=== PATIENT | male | born 2005 | race Caucasian/White ===

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

== ENCOUNTER 2023-03-15 12:09 | Emergency (ER) | payer OTHER, SELFPAY ==
--- NOTE | 2023-03-15 12:32 | EXP.UTC ---
Discharge Plan Disposition Patient Disposition: Home, Self-Care Condition: Good Prescriptions Prescriptions: New azithromycin [Zithromax] 250 mg tablet 250 mg PO UD DOSE PK Qty: 6 0RF Rx Instructions: Take two (2) tablets today, then one (1) tablet days #2 thru #5 benzonatate [benzonatate] 100 mg capsule 100 mg PO TIDP PRN (Reason: Cough) Qty: 30 0RF methylprednisolone 4 mg Tablets,Dose Pack 4 mg PO DIRECTED Qty: 21 0RF No Action methylprednisolone 4 mg Tablets,Dose Pack 4 mg PO DIRECTED Qty: 21 0RF triamcinolone acetonide 0.1 % cream 1 applic topical BID PRN (Reason: itching) Qty: 30 0RF Referrals Follow up/Referrals: Provider,Referral, MD [Primary Care Provider] - See instructions Activity Restrictions/Add. Instructions Additional Instructions/Restrictions: Drink plenty of fluids. Take tylenol or ibuprofen for pain or fever. Take the medications as directed. Follow up with your regular doctor. GO TO THE ER FOR ANY WORSENING SYMPTOMS Clinical Impressions Clinical Impression: Sinusitis Instructions Patient Instructions: Sinusitis, DI for Sinusitis Discharge ED Provider: Omero Herrera [facility] General Stated complaint: Congestion drainage sore throat Time Seen by Provider: 03/15/23 12:32 History of Present Illness Provider Complaint: He states that for the past 2 weeks he has had sinus congestion and bilateral ear pain. Related Data Previous Rx's Medication Instructions Recorded methylprednisolone 4 mg tablets in 4 mg PO DIRECTED #21 tabs 07/02/22 a dose pack triamcinolone acetonide 0.1 % 1 applic topical BID PRN itching 07/02/22 topical cream #30 grams azithromycin 250 mg tablet 250 mg PO UD DOSE PK #6 tabs 03/15/23 (Zithromax) benzonatate 100 mg capsule 100 mg PO TIDP PRN Cough #30 caps 03/15/23 methylprednisolone 4 mg tablets in 4 mg PO DIRECTED #21 tabs 03/15/23 a dose pack Allergies Allergy/AdvReac Type Severity Reaction Status Date / Time amoxicillin Allergy Verified 03/15/23 12:39 Penicillins Allergy Verified 03/15/23 12:39 [facility] Disclaimer: The information contained in this section may have been updated after the patient was seen, as this information can be updated by other users. Medical History Asthma Social History Smoking Status: Unknown if ever smoked alcohol intake: never current occupational status: unemployed Travel in the last 8 weeks: None ROS Obtained: Yes All systems reviewed & no additional complaints except as documented Constitutional Constitutional: Reports poor appetite Eyes Eyes: Reports system reviewed and no additional complaints, except as documented ENT Ears, Nose, Mouth, and Throat: Reports as per HPI Cardiovascular Cardiovascular: Reports system reviewed and no additional complaints, except as documented and Denies chest pain Respiratory Respiratory: Denies shortness of breath, Reports chest congestion, Reports cough, Denies stridor and Denies wheezing Gastrointestinal Gastrointestingal: Reports system reviewed and no additional complaints, except as documented; Denies abdominal pain, diarrhea or vomiting Musculoskeletal Musculoskeletal: Reports system reviewed and no additional complaints, except as documented and Denies arthralgias Integumentary/Breasts Skin/Breast: Reports system reviewed and no additional complaints, except as documented and Denies rash Neurologic Neurologic: Denies paresthesias Allergic/Immunologic Allergic/Immunologic: Denies wheezing Physical Exam General General appearance: alert and in no apparent distress Eye Eye exam: Present normal appearance, PERRL and EOMI ENT ENT exam: Present mucous membranes moist and normal external ear exam Expanded ENT Exam External ear exam: Present normal external inspection TM/Canal exam: Bilateral TM: eryt
[2023-03-15 12:35] VITALS: BP 108/67; PULSE 71; RESP 16; TEMP 36.6; O2SAT 99; BMI 32.1
[2023-03-15 13:00] VITALS: BP 108/67; PULSE 71; RESP 16; TEMP 36.6
== END 2023-03-15 13:01 | disposition home or self-care (01) ==
PROVIDERS: Emergency Provider Nurse Practitioner Family
DX: J01.90 Acute sinusitis, unspecified (principal); H92.03 Otalgia, bilateral; J45.909 Unspecified asthma, uncomplicated
CPT/HCPCS: 99212; 99214; G0463

== ENCOUNTER 2023-12-08 08:42 | Outpatient (CLI) | payer BC, SELFPAY ==
--- NOTE | 2023-12-08 08:51 | XR_ITS ---
FINAL REPORT CLINICAL HISTORY: COSTOCHONDRAL PAIN COMPARISON: None FINDINGS: Two views of the chest were obtained. The heart size and pulmonary vascularity are within normal limits. The mediastinum is normal. No acute pulmonary abnormality is identified. There is no pneumothorax. The bony thorax is intact. IMPRESSION: No active cardiopulmonary disease. Reviewed, Interpreted and Dictated by Niko Puentes III, MD Transcribed by Anh Trinidad Authenticated and [facility]
== END 2023-12-08 23:59 ==
PROVIDERS: PCP Family Medicine; Visit Provider Family Medicine
DX: R07.89 Other chest pain (principal)
CPT/HCPCS: 71046

== ENCOUNTER 2024-07-05 07:41 | Outpatient (CLI) | payer BC, SELFPAY ==
--- NOTE | 2024-07-05 07:47 | US_ITS ---
FINAL REPORT CLINICAL HISTORY: .RUQ PAIN COMPARISON: None FINDINGS: Sonographic images of the right upper quadrant were obtained. The pancreas is partially obscured. There is increased echogenicity in the liver, consistent with fatty infiltration. The gallbladder appears normal without evidence of gallstones.There is no evidence of biliary ductal dilatation.The common duct measures 3 mm. Limited images of the right kidney are unremarkable. IMPRESSION: Fatty infiltration of the liver. Otherwise unremarkable right upper quadrant ultrasound. Reviewed, Interpreted and Dictated by Niko Puentes III, MD Transcribed by Guadalupe Eubanks Authenticated and [facility]
== END 2024-07-05 23:59 | disposition home or self-care (01) ==
PROVIDERS: PCP Nurse Practitioner; Visit Provider Nurse Practitioner
DX: R10.11 Right upper quadrant pain (principal)
CPT/HCPCS: 76705

== ENCOUNTER 2024-07-09 14:07 | Emergency (ER) | payer BC, SELFPAY ==
[2024-07-09 14:19] VITALS: BP 139/79; PULSE 79; RESP 16; O2SAT 100; BMI 38.2
--- NOTE | 2024-07-09 14:32 | XR_ITS ---
FINAL REPORT CLINICAL HISTORY: Ankle/foot injury COMPARISON: None FINDINGS: LEFT ANKLE: 3 views of the left ankle were obtained. There is no acute fracture or dislocation. The joint spaces are intact. There is no soft tissue abnormality. IMPRESSION: No acute process. Reviewed, Interpreted and Dictated by Alo Montanez MD Transcribed by Anh Trinidad Authenticated and [facility]
--- NOTE | 2024-07-09 14:32 | ED_ITS ---
<Statement entered by Nettie Valle DO - 07/09/24 18:30> I was consulted by the MITCH, and we discussed the complexity of the problems being addressed. I approved the treatment and management plan for this patient's care in the emergency department, thus performing a substantive portion of the medical decision making. Nettie Valle DO Discharge Plan Disposition Patient Disposition: Home, Self-Care Condition: Good Chief Complaint: Extremity Injury, Lower Prescriptions Prescriptions: No Action methylprednisolone 4 mg Tablets,Dose Pack 4 mg PO DIRECTED Qty: 21 0RF triamcinolone acetonide 0.1 % cream 1 applic topical BID PRN (Reason: itching) Qty: 30 0RF azithromycin [Zithromax] 250 mg tablet 250 mg PO UD DOSE PK Qty: 6 0RF Rx Instructions: Take two (2) tablets today, then one (1) tablet days #2 thru #5 benzonatate [benzonatate] 100 mg capsule 100 mg PO TIDP PRN (Reason: Cough) Qty: 30 0RF methylprednisolone 4 mg Tablets,Dose Pack 4 mg PO DIRECTED Qty: 21 0RF Referrals Follow up/Referrals: Zohaib Bianchi MD [Primary Care Provider] - See instructions Activity Restrictions/Add. Instructions Additional Instructions/Restrictions: I recommend rest, ice, compression, elevation, NSAIDs and Tylenol for symptomatic relief. Follow-up PCP. Clinical Impressions Clinical Impression: Ankle sprain and strain, Acute internal derangement of knee Instructions Patient Instructions: Sprain Print Language Print Language: Serbian Discharge ED Provider: Nettie Valle General Adult HPI General Chief complaint: Extremity Injury, Lower Stated complaint: L Ankle pain ao stepped off porch Time Seen by Provider: 07/09/24 14:27 Mode of Arrival: Ambulatory Source of Information: Patient Limitations: No Limitations Description of Symptoms (Recalled from ER Triage Doc. by RN): Patient reports he stepped off the porch and rolled his left ankle this morning. History of Present Illness HPI narrative: 18-year-old male presents emergency department with a left foot/ankle injured happened this morning, the patient tells me he stepped off the porch and stepped in a hole that the dog had dug . He has ambulated on the affected extremity, but it is painful, he endorses some pain and subjective swelling to the area, he denies any fever chills recent illness, chest pain shortness breath abdominal pain nausea vomiting or any other acute symptomatology. Denies any other real relevant past medical history, takes no other medications at home, denies any alcohol tobacco or drug use. Triage vitals grossly unremarkable. Onset (ago): hour(s) Related Data Previous Rx's ?Medication ?Instructions ?Recorded methylprednisolone 4 mg tablets in 4 mg PO DIRECTED #21 tabs 07/02/22 a dose pack triamcinolone acetonide 0.1 % 1 applic topical BID PRN itching 07/02/22 topical cream #30 grams azithromycin 250 mg tablet 250 mg PO UD DOSE PK #6 tabs 03/15/23 (Zithromax) benzonatate 100 mg capsule 100 mg PO TIDP PRN Cough #30 caps 03/15/23 methylprednisolone 4 mg tablets in 4 mg PO DIRECTED #21 tabs 03/15/23 a dose pack Allergies Allergy/AdvReac Type Severity Reaction Status Date / Time amoxicillin Allergy Verified 03/15/23 12:39 Penicillins Allergy Verified 03/15/23 12:39 [facility] Disclaimer: The information contained in this section may have been updated after the patient was seen, as this information can be updated by other users. Medical History Asthma Social History Smoking Status: Never smoker alcohol intake: never current occupational status: unemployed Travel in the last 8 weeks: None ROS Obtained: Yes All systems reviewed & no additional complaints except as documented Physical Exam General General appearance: alert and in no apparent distress Head Head exam: atraumatic and normocephalic Eye Eye exam: Present PERRL and EOMI ENT ENT exam: Present mucous membranes moist Neck Neck exam: Present normal inspection Chest Chest inspection: Present normal inspection and symmetric chest wall rise Respiratory Respiratory exam: Present normal lung sounds bilaterally; Absent respiratory distress Cardiovascular Cardiovascular exam: Present regular rate and normal rhythm Abdominal Exam Abdominal exam: Present soft; Absent tenderness Extremities Exam Extremities exam: Present normal inspection, full ROM, tenderness, normal capillary refill and other (Mild tenderness to palpation to the lateral malleolus, and dorsum of the midfoot to palpation. Otherwise neurovascular intact.); Absent edema, joint swelling or calf tenderness Neurological Exam Neurological exam: Present alert and oriented X3 Psychiatric Psychiatric exam: Present normal affect Skin Skin exam: Present warm and dry Medical Decision Making Medical Records Medical records reviewed: Yes I reviewed the patient's medical records. Screening: Per USPSTF and CDC recommendations, given the prevalence of disease in our region, it is our hospital?s policy to screen for HIV and viral Hepatitis for all patients aged 18 and over and those with ongoing risk factors. Cole Inquiry Pt receiving controlled substance: No Cole was queried for this patient: No Vital Signs: 07/09/24 14:19 Pulse Rate [Right Brachial] 79 Respiratory Rate 16 Blood Pressure [Right Arm] 139/79 Blood Pressure Mean [Right Arm] 99 02 Sat by Pulse Oximetry 100 Oxygen Delivery Method Room Air Orders (Tests/Meds): ED MEDICATIONS Discontinued Medications Generic Name Dose Route Start Last Admin Trade Name Freq PRN Reason Stop Dose Admin Ibuprofen 400 mg 07/09/24 15:48 Ibuprofen 400 Mg Tablet PO 07/09/24 15:49 ONCE ONE ORDERS Category Date Time Status XR ankle LT 2V Stat Exams 07/09/24 14:32 Taken XR foot LT min 3V Stat Exams 07/09/24 14:32 Taken Medical Decision Narrative: 18-year-old male presents the emergency department for a left foot/ankle injury that happened this morning, differential diagnose include but not limited to ankle sprain, ankle fracture, foot sprain, foot fracture I discussed this patient's case with attending physician Dr. Valle Will obtain left ankle x-ray, left foot x-ray for further evaluation as characterization, will give 400 mg p.o. ibuprofen for pain I along with the attending physician reviewed the patient's plain film x-rays of the ankle and the foot, and preliminary rad reports were negative. Discussed these fines with the patient at the bedside commend rest, ice, c ompression, elevation, patient was likely has ankle sprain, will provide Praneeth wrap and recommend NSAIDs for symptomatic pain relief. Follow with PCP as directed. Strict ED return precaution given. Critical Care Critical Care Time Critical Care Time: No
--- NOTE | 2024-07-09 14:32 | XR_ITS ---
FINAL REPORT CLINICAL HISTORY: Left ankle/foot injury COMPARISON: None FINDINGS: LEFT FOOT Three views of the left foot demonstrate no acute fracture or dislocation. The visualized joint spaces are normally aligned. The soft tissues are unremarkable. IMPRESSION: No acute bony abnormality. Reviewed, Interpreted and Dictated by Alo Montanez MD Transcribed by Anh Trinidad Authenticated and [facility]
[2024-07-09] MEDS: IBUPROFEN 400 MG TABLET PO (16:30)
[2024-07-09 16:36] VITALS: BP 127/76; PULSE 77; RESP 18; TEMP 36.9; O2SAT 99
== END 2024-07-09 16:38 | disposition home or self-care (01) ==
PROVIDERS: Emergency Provider Emergency Medicine; PCP Family Medicine
DX: S93.402A Sprain of unspecified ligament of left ankle, initial encounter (principal); M23.92 Unspecified internal derangement of left knee; M25.572 Pain in left ankle and joints of left foot; W17.2XXA Fall into hole, initial encounter
CPT/HCPCS: 73600; 73630; 99283